=== PATIENT | male | born 2000 | race Caucasian/White ===

== ENCOUNTER 2024-08-25 16:05 | Inpatient (IN) | payer BC ==
--- NOTE | 2024-08-25 17:29 | ED ---
Skin/Abscess/FB HPI - General Chief complaint: Skin/Abscess/Foreign Body Stated complaint: r leg cut- pain Time Seen by Provider: 08/25/24 17:21 Source: patient, RN notes reviewed Mode of arrival: ambulatory - History of Present Illness Initial comments: 23-year-old male presenting for right knee infection x 2 weeks. States he believes he may have gotten a cut at work a couple weeks ago on his anterior knee and has been having increased redness and pain since then. States in the last 48 hours, he has noticed red streaks spreading up the thigh and he has soreness of the right thigh. 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 Denies fevers, nausea, vomiting. He is otherwise healthy. - Related Data Allergies Allergy/AdvReac Type Severity Reaction Status Date / Time No Known Allergies Allergy Verified 08/25/24 16:24 Review of Systems ROS Statement: Those systems with pertinent positive or pertinent negative responses have been documented in the HPI. ROS Other: All systems not noted in ROS Statement are negative. Past Medical History Past Medical History: No Reported History History of Any Multi-Drug Resistant Organisms: None Reported Past Surgical History: No Surgical Hx Reported Past Psychological History: No Psychological Hx Reported Smoking Status: Current every day smoker, Vaper Past Alcohol Use History: Daily Past Drug Use History: None Reported, Marijuana General Exam General appearance: alert, in no apparent distress Head exam: Present: atraumatic, normocephalic, normal inspection Right Hip exam: Present: normal inspection, full ROM. Absent: tenderness, swelling Upper Leg exam: Present: full ROM, tenderness (Right inguinal lymphadenopathy). Absent: normal inspection (Streaking erythema present to right upper leg) Knee exam: Present: full ROM, tenderness, erythema. Absent: normal inspection (There is a 1 x 1 cm puncture wound with surrounding erythema just inferior to the right knee. Full range of motion of the knee), swelling Lower Leg exam: Present: normal inspection, full ROM. Absent: tenderness, swelling Ankle exam: Present: normal inspection, full ROM. Absent: tenderness, swelling Foot/Toe exam: Present: normal inspection, full ROM. Absent: tenderness, swelling Neurovascular tendon exam: Present: no vascular compromise. Absent: pulse deficit, abnormal cap refill, sensory deficit Neurological exam: Present: alert, oriented X3 Psychiatric exam: Present: normal affect, normal mood Skin exam: Present: warm, dry, intact Course Vital Signs 08/25/24 16:20 Temperature 98.1 F Pulse Rate 91 Respiratory 18 Rate Blood Pressure 135/70 O2 Sat by Pulse 97 Oximetry Medical Decision Making - Medical Decision Making Was pt. sent in by a medical professional or institution ([facility], [facility]TRAS[facility] TE[facility], urgent care, hospital, or residential...) When possible be specific @ -No Did you speak to anyone other than the patient for history (EMS, parent, family, police, friend...)? What history was obtained from this source @ -No Did you review nursing and triage notes (agree or disagree)? Why? @ -I reviewed and agree with nursing and triage notes Were old charts reviewed (outside hosp., previous admission, EMS record, old EKG, old radiological studies, urgent care reports/EKG's, residential records)? Report findings @ -No old charts were reviewed Differential Diagnosis (chest pain, altered mental status, abdominal pain women, abdominal pain men, vaginal bleeding, weakness, fever, dyspnea, syncope, headache, dizziness, GI bleed, back pain, seizure, CVA, palpatations, mental health, musculoskeletal)? @ -Cellulitis, abscess, septic joint, lymphangitis, contact dermatitis EKG interpreted by me (3pts min.). @ -None X-rays interpreted by me (1pt min.). @ -None done CT interpreted by me (1pt min.). @ -None done U/S interpreted by me (1pt. min.). @ -None done What testing was considered but not performed or refused? (CT, X-rays, U/S, labs)? Why? @ -None What meds were considered but not given or refused? Why? @ -None Did you discuss the management of the patient with other professionals (professionals i.e. , [facility], ULTRASOUND TESTER, lab, RT, psych nurse, social sciences department chair, senior media buyer, teacher, chief risk officer, rn case mgr)? Give summary @ -I spoke with Dr. Chaney from [facility] who accepts admission Was smoking cessation discussed for >3mins.? @ -No Was critical care preformed (if so, how long)? @ -No Were there social determinants of health that impacted care today? How? (Homelessness, low income, unemployed, alcoholism, drug addiction, transportation, low edu. Level, literacy, decrease access to med. care, residential, rehab)? @ -No Was there de-escalation of care discussed even if they declined (Discuss DNR or withdrawal of care, Hospice)? DNR status @ -No What co-morbidities impacted this encounter? (DM, HTN, Smoking, COPD, CAD, Cancer, CVA, ARF, Chemo, Hep., AIDS, mental health diagnosis, sleep apnea, morbid obesity)? @ -None Was patient admitted / discharged? Hospital course, mention meds given and route, prescriptions, significant lab abnormalities, going to OR and other pertinent info. @ - admitted. 23-year-old male presenting for right knee infection x 2 weeks with streaking erythema up the right thigh in the last 48 hours. Positive lym phadenopathy. Patient is afebrile, nontachycardic. Neurovascularly intact. No sign of septic joint of the right knee. Blood cultures were taken. Patient was given dose of IV cefazolin in the ER while awaiting lab work. Lab work remarkable for white blood cell count 9, CRP 4.6. Patient will be admitted to medicine for lymphangitis and cellulitis for IV antibiotics. Case was discussed with my ED attending Dr. Barrientos. Undiagnosed new problem with uncertain prognosis? @ -No Drug Therapy requiring intensive monitoring for toxicity (Heparin, Nitro, Insulin, Cardizem)? @ -No Were any procedures done? @ -No Diagnosis/symptom? @ -Cellulitis, lymphangitis Acute, or Chronic, or Acute on Chronic? @ -Acute Uncomplicated (without systemic symptoms) or Complicated (systemic symptoms)? @ -Uncomplicated Side effects of treatment? @ -No Exacerbation, Progression, or Severe Exacerbation? @ -No Poses a threat to life or bodily function? How? (Chest pain, [place], [place], pneumonia, PE, COPD, DKA, ARF, appy, cholecystitis, CVA, Diverticulitis, Homicidal, Suicidal, threat to staff... and all critical care pts) @ -Potentially - Lab Data Result diagrams: 08/25/24 18:19 08/25/24 18:19 Lab Results 08/25/24 08/25/24 Range/Units 18:19 18:19 WBC 9.34 (4.50-10.00) 10*3/uL RBC 4.95 (4.40-5.60) 10*6/uL Hgb 14.6 (13.0-17.0) g/dL Hct 41.3 (39.6-50.0) % MCV 83.4 (80.0-97.0) fL MCH 29.5 (27.0-32.0) pg MCHC 35.4 (32.0-37.0) g/dL Plt Count 271 (140-440) 10*3/uL MPV 10.3 (9.5-12.2) fL Immature Gran % (Auto) 0.4 % Neutrophils % 65.5 % Lymphocytes % 22.2 % Monocytes % 9.2 % Eosinophils % 1.8 % Basophils % 0.9 % Immature Gran # 0.04 (0.00-0.04) 10*3/uL Neutrophils # 6.12 (1.80-7.70) 10*3/uL Lymphocytes # 2.07 (0.90-5.00) 10*3/uL Monocytes # 0.86 (0.20-1.00) 10*3/uL Eosinophils # 0.17 (0.04-0.35) 10*3/uL Basophils # 0.08 (0.00-0.10) 10*3/uL Sodium 137 (137-145) mmol/L Potassium 4.3 (3.5-5.1) mmol/L Chloride 102 (98-107) mmol/L Carbon Dioxide 25 (22-30) mmol/L Anion Gap 10 mmol/L BUN 16 (9-20) mg/dL Creatinine 0.81 (0.66-1.25) mg/dL Est GFR (CKD-EPI)AfAm >90 (>60 ml/min/1.73 sqM) Est GFR (CKD-EPI)NonAf >90 (>60 ml/min/1.73 sqM) Glucose 86 (74-99) mg/dL Calcium 9.7 (8.4-10.2) mg/dL Total Bilirubin 1.0 (0.2-1.3) mg/dL AST 25 (17-59) U/L ALT 25 (4-49) U/L Alkaline Phosphatase 74 (38-126) U/L C-Reactive Protein 4.6 H (<1.0) mg/dL Total Protein 6.9 (6.3-8.2) g/dL Albumin 4.5 (3.5-5.0) g/dL Disposition Clinical Impression: Lymphangitis, Cellulitis of right lower extremity Disposition: ADMITTED IP TO THIS HOSP Referrals: None,Stated [Primary Care Provider] - 1-2 days Time of Disposition: 19:58
[2024-08-25 18:27] LABS: Basophils # (A) 0.08 10*3/uL (0.00-0.10); Basophils % (A) 0.9 %; Eosinophils # (A) 0.17 10*3/uL (0.04-0.35); Eosinophils % (A) 1.8 %; HCT 41.3 % (39.6-50.0); HGB 14.6 g/dL (13.0-17.0); Lymphocytes # (A) 2.07 10*3/uL (0.90-5.00); Lymphocytes % (A) 22.2 %; MCH 29.5 pg (27.0-32.0); MCHC 35.4 g/dL (32.0-37.0); MCV 83.4 fL (80.0-97.0); Monocytes # (A) 0.86 10*3/uL (0.20-1.00); Monocytes % (A) 9.2 %; Neutrophils # (A) 6.12 10*3/uL (1.80-7.70); Neutrophils % (A) 65.5 %; Platelet Count 271 10*3/uL (140-440); RBC 4.95 10*6/uL (4.40-5.60); RDW 11.8 % (11.5-14.5); WBC 9.34 10*3/uL (4.50-10.00)
[2024-08-25 18:41] LABS: ALT 25 U/L (4-49); AST 25 U/L (17-59); African American GFR (CKD) >90 (>60 ml/min/1.73 sqM); Albumin 4.5 g/dL (3.5-5.0); Alkaline Phosphatase 74 U/L (38-126); Anion Gap 10 mmol/L; Blood Urea Nitrogen 16 mg/dL (9-20); Calcium 9.7 mg/dL (8.4-10.2); Carbon Dioxide 25 mmol/L (22-30); Chloride 102 mmol/L (98-107); Glucose 86 mg/dL (74-99); Non-African American GFR(CKD) >90 (>60 ml/min/1.73 sqM); Potassium 4.3 mmol/L (3.5-5.1); Sodium 137 mmol/L (137-145); Total Protein 6.9 g/dL (6.3-8.2)
[2024-08-25] MEDS ORDERED: NALOXONE 0.4 MG/ML 1 ML VIAL IV PRN (19:44)
[2024-08-25] MEDS ORDERED: KETOROLAC 15 MG/ML 1 ML VIAL IVP PRN (19:51)
[2024-08-25] MEDS ORDERED: ACETAMINOPHEN TAB 325 MG TAB PO PRN (19:51)
[2024-08-25] MEDS ORDERED: ONDANSETRON 4 MG/2 ML VIAL IVP PRN (19:51)
[2024-08-25] MEDS: SODIUM CHLORIDE 0.9% 1,000 ML IV SCH (20:03)
--- NOTE | 2024-08-25 21:52 | P.HPIM ---
History of Present Illness H&P Date: 08/25/24 Patient is a 23 y/o M with no PMHx here for a painful wound on his right knee. 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 Would was not painful at first and didn't think much of it. Over the course of the past the wound got larger. On Wednesday, the wound started being tender. Yesterday, he tried to drain the wound which yielded a small amount of clear fluid. Last night, he shares that the wound was very sore as well as his groin. This morning, he noticed redness tracking from the wound to his mid thigh and it was very painful which prompted him to come to the ED. He denies fevers/chills, N/V, or any pruritis. Imaging: None ordered Labs: CRP - 4.6 Vitals: 98.8, 71bpm, 16RR, 129/79, 100% O2 on RA Review of systems: Pertinent positives and negatives as discussed in HPI, a complete review of systems was performed and all other systems are negative. Physical examination: Vital signs reviewed General: non toxic, no distress, appears at stated age, normal weight Derm: no unusual rashes/lesions, warm Head: atraumatic, normocephalic, symmetric Eyes: EOMI, anicteric sclera, pupils equal round reactive to light ENT: Nose and ears atraumatic Neck: No cervical lymphadenopathy, trachea midline, supple Mouth: no lip lesion, mucus membranes moist Cardiovascular: S1S2 reg, no murmur, positive dorsalis pedis pulse bilateral, no edema Lungs: CTA bilateral, no rhonchi, no rales, no accessory muscle use Abdominal: soft, nontender to palpation, no guarding Ext: muscle strength 5 out of 5 in all 4 extremities grossly, no gross muscle atrophy, [id number] wound on R knee with erythema tracking up thigh. Tender R inguinal lymph node Neuro: CN II-XI grossly intact, no gross focal neuro deficits Psych: Alert, oriented to person, place, and time Assessment/Plan: Pt is 23 y/o male presenting with sxs of lymphangitis. # Skin and soft tissue infection at the right lower extremity below the knee with lymphangitis - Pt has erythema tracking up to the lymph nodes. Start abx and stephie wound to monitor if erythema spreads. Plan: -MRSA/MSSA test -Stephie Margins -Cefazolin The patient is admitted with an anticipated [] than 2 midnight stay for evaluation of [] CODE STATUS: [FULL CODE] Discussed with: Dr Chaney Anticipated discharge place: Home Attestation : Patient seen and examined with medical biller/coder. Agree with above assessment a nd plan. 23 y/o M with no PMHx here for a painful wound on his right knee. 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 Would was not painful at first and didn't think much of it. Over the course of the past the wound got larger. On Wednesday, the wound started being tender. Upon examination, patient has [id number] wound on R knee with erythema tracking up thigh. Tender R inguinal lymph node. No concern of abscess or septic knee. Did not meet sepsis criteria. Will continue with IV cefazolin Time spent : 55 min Past Medical History Past Medical History: No Reported History History of Any Multi-Drug Resistant Organisms: None Reported Past Surgical History: No Surgical Hx Reported Past Psychological History: No Psychological Hx Reported Smoking Status: Current every day smoker, Vaper Past Alcohol Use History: Daily Past Drug Use History: None Reported, Marijuana Medications and Allergies Allergies Allergy/AdvReac Type Severity Reaction Status Date / Time No Known Allergies Allergy Verified 08/25/24 16:24 Physical Exam Vitals: Vital Signs Temp Pulse Resp BP Pulse Ox 08/25/24 21:25 98.8 F 71 16 129/79 100 08/25/24 20:08 98.6 F 62 16 118/73 98 08/25/24 16:20 98.1 F 91 18 135/70 97 Intake and Output 08/25/24 08/25/24 08/25/24 06:59 14:59 22:59 Other: Weight 79.379 kg Results CBC & Chem 7: 08/25/24 18:19 08/25/24 18:19 Labs: Abnormal Lab Results - Last 24 Hours (Table) 08/25/24 Range/Units 18:19 C-Reactive Protein 4.6 H (<1.0) mg/dL
[2024-08-26] MEDS ORDERED: CEFAZOLIN IVPB SCH (02:00)
[2024-08-26] MEDS ORDERED: SODIUM CHLORIDE 0.9% IVPB SCH (02:00)
--- NOTE | 2024-08-26 09:17 | P.PN ---
Subjective Progress Note Date: 08/26/24 Hospital course: Patient is a 23-year-old healthy male with no reported past medical history other than nicotine use via vaping. Did to the hospital on 08/25/2024 secondary to painful wound on right knee. He reports he is unclear exactly when this happened and is unsure of what actually caused this wound, but states he believes it may have been a spider bite and admits to being down in the crawl space. Patient reports over the last week this wound seem to have increased pain followed by some surrounding redness. Did try to squeeze wound but reports only a small amount of clearish yellowish fluid came out. Patient reports since then he has developed significant redness surrounding and now going upwards his leg and into his thigh. Physical exam: Patient seen and fully evaluated at the bedside this morning. He continues to report mild to moderate pain of right knee extending upwards into thigh. Patient also reporting groin tenderness and has noted lymphadenopathy. Erythema is extending outside previous outlined area. Patient denies having any chills or diaphoresis, no documented fevers over the past 24 hours, he denies any nausea or vomiting or experiencing any numbness/tingling/weakness in his extremities. Patient reports he is unable to bear weight on his right leg secondary to increased pain. Vital signs reviewed and stable. General: Nontoxic, no distress and appears stated age. Derm: Skin warm and dry, normal coloration for ethnicity. Patient with appro ximately 1 cm round wound/scab to right knee with surrounding erythema extending upwards anterior thigh with surrounding lymphadenopathy right groin region. Erythema slightly exceeding outline placed upon arrival with skin marker. No drainage at this time. Head: Atraumatic, normocephalic and symmetric. Eyes: EOM's intact, no lid lag, and anicteric sclera Mouth: no lip lesions, mucus membranes moist Cardiovascular: regular rate and rhythm with normal S1S2, no murmur, positive posterior tibial pulses bilaterally, and cap refill < 2 seconds. Lungs: Respirations even, regular, and unlabored on room air. Lungs CTA bilaterally, no rhonchi, no rales, no wheezing, and no accessory muscle usage. Abdominal: soft, nontender to palpation, no guarding, no appreciable organomegaly Ext: ROM intact. No gross muscle atrophy, no edema, no contractures Neuro: Speech clear, face symmetrical and CN II-XII grossly intact with no noted focal neuro deficits Psych: Alert and oriented to person, place, time, and situation. Appropriate and pleasant affect. Assessment and Plan of Care: Suspected spider bite with cellulitis and lymphangitis -Slightly worsening since admission as erythema is exceeding outlined initially placed upon arrival with skin marker. -Consult placed to infectious disease. -Continue IV antibiotics with Kefzol 2 g every 8 hours. -Follow-up on blood culture results and MRSA/MSSA screening -Symptomatic care and pain management 50 mg every 6 hours as needed for mild pain and/for fever and Toradol 15 mg IVP as needed for moderate to severe pain. - Order placed for repeat CBC, ESR, and CRP. Follow-up on these results. Nicotine dependence -Recommended smoking cessation, patient offered nicotine patch but declined at this time. Data and imaging reviewed: Vital signs reviewed. Blood pressure 110/70, heart rate 60, respiratory rate 18, temp 97.7 F, and SpO2 of 100% on room air. Labs reviewed. CBC unremarkable. BMP normal findings. CRP elevated at 4.6. CODE STATUS: Full code DVT prophylaxis: Lovenox Anticipated discharge date: Pending clinical course Anticipated discharge place: Home Patient was seen independently by Nurse Pracitioner. This document was prepared using [employer] dictation software. Please allow for errors in epic cadence analyst, while rare they do occur. Celso Bryan NP rendered care for this patient independently, reviewed the fin dings and plan as documented in the note above and agree with plan. I did not physically speak with or examine the patient on this date. Objective - Vital Signs Vital signs: Vital Signs Temp 97.7 F 08/26/24 07:47 Pulse 60 08/26/24 07:47 Resp 18 08/26/24 07:47 BP 110/70 08/26/24 07:47 Pulse Ox 100 08/26/24 07:47 FiO2 Intake & Output 08/25/24 08/26/24 08/26/24 18:59 06:59 18:59 Weight 79.379 kg 79.379 kg Other: # Voids 2 # Bowel Movements 1 - Labs CBC & Chem 7: 08/25/24 18:19 08/25/24 18:19 Labs: Abnormal Lab Results - Last 24 Hours (Table) 08/25/24 Range/Units 18:19 C-Reactive Protein 4.6 H (<1.0) mg/dL
[2024-08-26 15:59] LABS: Basophils # (A) 0.06 10*3/uL (0.00-0.10); Basophils % (A) 0.8 %; Eosinophils # (A) 0.30 10*3/uL (0.04-0.35); Eosinophils % (A) 4.1 %; HCT 41.3 % (39.6-50.0); HGB 14.6 g/dL (13.0-17.0); Lymphocytes # (A) 1.94 10*3/uL (0.90-5.00); Lymphocytes % (A) 26.6 %; MCH 29.8 pg (27.0-32.0); MCHC 35.4 g/dL (32.0-37.0); MCV 84.3 fL (80.0-97.0); Monocytes # (A) 0.62 10*3/uL (0.20-1.00); Monocytes % (A) 8.5 %; Neutrophils # (A) 4.36 10*3/uL (1.80-7.70); Neutrophils % (A) 59.7 %; Platelet Count 271 10*3/uL (140-440); RBC 4.90 10*6/uL (4.40-5.60); RDW 12.0 % (11.5-14.5); WBC 7.30 10*3/uL (4.50-10.00)
--- NOTE | 2024-08-26 22:46 | P.CONS ---
History of Present Illness - Reason for Consult Consult date: 08/26/24 Cellulitis with lymphangitis Requesting physician: Celso Bryan - Chief Complaint Right knee and thigh pain swelling redness x 2 days - History of Present Illness Patient is a 23-year-old male with no significant past medical history current everyday smoker presenting to the hospital concerning for right knee pain swelling redness worsening with standing up towards the thigh symptom has been going on for the last few days patient denies any history of any trauma however he does work involving kneeling a lot and not using any kneepads patient did not recall any specific trauma or cart he noticed to have a small pimple/blister subsequently noticing increasing swelling redness patient describes the pain to be show moderate redness without any lesion with as sociated swelling redness no drainage patient did not have any fever no tachycardia hypertension patient 0.24 creatinine 0.81 electrolytes are normal liver enzymes are normal patient was started on cefazolin 2 g every 8 hours infectious he was consulted for cellulitis with lymphangitis Review of Systems Positive point and negatives has been mentioned in the HPI, complete review of systems was performed and all other systems are negative Past Medical History Past Medical History: No Reported History History of Any Multi-Drug Resistant Organisms: None Reported Past Surgical History: No Surgical Hx Reported Past Psychological History: No Psychological Hx Reported Smoking Status: Current every day smoker, Vaper Past Alcohol Use History: Daily Past Drug Use History: None Reported, Marijuana Medications and Allergies Home Medications Medication Instructions Recorded Confirmed Type No Known Home Medications 08/26/24 08/26/24 History Allergies Allergy/AdvReac Type Severity Reaction Status Date / Time No Known Allergies Allergy Verified 08/26/24 10:29 Physical Exam Vitals: Vital Signs Temp Pulse Pulse Resp BP BP Pulse Ox 08/26/24 07:47 97.7 F 60 18 110/70 100 08/25/24 22:26 98.0 F 16 114/76 100 08/25/24 22:07 62 08/25/24 21:25 98.8 F 71 16 129/79 100 08/25/24 20:08 98.6 F 62 16 118/73 98 08/25/24 16:20 98.1 F 91 18 135/70 97 Intake and Output 08/25/24 08/26/24 08/26/24 22:59 06:59 14:59 Other: # Voids 2 # Bowel Movements 1 Weight 79.379 kg GENERAL DESCRIPTION: Young male lying in bed, no distress. No tachypnea or accessory muscle of respiration use. HEENT: Shows Pallor , no scleral icterus. Oral mucous membrane is dry. No pharyngeal erythema or thrush NECK: Trachea central, no thyromegaly. LUNGS: Unlabored breathing. Clear to auscultation anteriorly. No wheeze or crackle. HEART: S1, S2, regular rate and rhythm. No loud murmur ABDOMEN: Soft, no tenderness , guarding or rigidity, no organomegaly EXTREMITIES: Right knee prepatellar area did have a small area of fluctuation and likely folliculitis with secondary swelling redness extending to the lower thigh likely from lymphangitis SKIN: No rash, no masses palpable. NEUROLOGICAL: The patient is awake, alert, oriented x3, mood and affect normal. Results CBC & Chem 7: 08/26/24 15:35 08/25/24 18:19 Labs: Abnormal Lab Results - Last 24 Hours (Table) 08/25/24 Range/Units 18:19 C-Reactive Protein 4.6 H (<1.0) mg/dL Assessment and Plan (1) Cellulitis of right lower extremity Current Visit: Yes Status: Acute Code(s): L03.115 - CELLULITIS OF RIGHT LOWER LIMB SNOMED Code(s): 30185031043622087 (2) Lymphangitis Current Visit: Yes Status: Acute Code(s): I89.1 - LYMPHANGITIS SNOMED Code(s): 7528806 Plan: 1patient was in the hospital recently admitted pain swelling redness to the right knee with linear erythema extending to the anterior right thigh and likely representing lymphangitis and cellulitis that seem to have originated from the right knee prepatellar area and likely from gram-positive skin kip could be strep or MSSA keeping in mind some improvement with the cefazolin 2if the area started to drain to obtain culture 3will continue patient will IV cefazolin for another 24-hour and if show overall improvement may consider patient therapy with oral Keflex Multiple question concern answered also advised need to use the kneepads to prevent any recurrent trauma or infection We will follow on clinical condition and cultures to further adjust medication if needed Thank you for this consultation we will follow the patient along with you Dictation was produced using [employer] software. please excuse any grammatical, word or spelling errors. Time with Patient: Greater than 30
[2024-08-27 09:02] LABS: HCT 40.5 % (39.6-50.0); HGB 13.9 g/dL (13.0-17.0); MCH 28.7 pg (27.0-32.0); MCHC 34.3 g/dL (32.0-37.0); MCV 83.7 FL (80.0-97.0); NRBC Per 100 WBC 0 X 10*3/uL (0.00-0.01); Platelet Count 285 X 10*3/uL (140-440); RBC 4.84 X 10*6/uL (4.40-5.60); RDW 11.9 % (11.5-14.5); WBC 7.09 X 10*3/uL (4.50-10.00)
[2024-08-27] MEDS: ENOXAPARIN 40 MG/0.4 ML SYRINGE SQ SCH (09:04)
[2024-08-27 09:07] LABS: Anion Gap 11.50 mmol/L (4.00-12.00); BUN/Creat Ratio 11.78 Ratio (12.00-20.00); Blood Urea Nitrogen 10.6 mg/dL (9.0-27.0); Calcium 8.9 mg/dL (8.7-10.3); Carbon Dioxide 23.5 mmol/L (21.6-31.8); Chloride 105 mmol/L (96-109); Glucose 104 mg/dL (70-110); Magnesium 2.0 mg/dL (1.5-2.4); Potassium 4.2 mmol/L (3.5-5.5); Sodium 140 mmol/L (135-145)
[2024-08-27 15:06] VITALS: BP 121/69; PULSE 42; RESP 17; TEMP 98
--- NOTE | 2024-08-27 15:42 | P.DS ---
Providers Date of admission: 08/25/24 19:53 Expected date of discharge: 08/27/24 Attending physician: Ector Chaney MD Consults: 08/26/24 08:36 Consult Physician Routine Consulting Provider: Kavita Purdy Consult Reason/Comments: CELLULITIS, LYMPHANGITIS Do you want consulting provider notified?: Yes Primary care physician: Stated None Hospital Course: Discharge Diagnosis: Suspected spider bite with cellulitis and lymphangitis. Patient has shown significant improvement on IV antibiotics with Kefzol 2 g every 8 hours. Blood culture showing no growth to date. MRSA/MSSA screening negative. Discussed with infectious disease physician, patient cleared for discharge home on oral Keflex 500 mg every 6 hours for an additional 7 days. Patient to follow-up outpatient with PCP with follow-up and further management. Nicotine dependence. Recommended smoking cessation. Hospital Course: Patient is a 23-year-old healthy male with no reported past medical history other than nicotine use via vaping. Did to the hospital on 08/25/2024 secondary to painful wound on right knee. He reports he is unclear exactly when this happened and is unsure of what actually caused this wound, but states he believes it may have been a spider bite and admits to being down in the crawl space. Patient reports over the last week this wound seem to have increased pain followed by some surrounding redness. Did try to squeeze wound but reports only a small amount of clearish yellowish fluid came out. Patient reports since then he has developed significant redness surrounding and now going upwards his leg and into his thigh. Physical exam: Patient seen and fully evaluated at the bedside this morning. He continues to report mild to moderate pain of right knee extending upwards into thigh. Patient also reporting groin tenderness and has noted lymphadenopathy. Erythema is extending outside previous outlined area. Patient denies having any chills or diaphoresis, no documented fevers over the past 24 hours, he denies any nausea or vomiting or experiencing any numbness/tingling/weakness in his extremities. Patient reports he is unable to bear weight on his right leg secon marion to increased pain. Vital signs reviewed and stable. General: Nontoxic, no distress and appears stated age. Derm: Skin warm and dry, normal coloration for ethnicity. Patient with approximately 1 cm round wound/scab to right knee with minimal surrounding erythema extending upwards anterior thigh but significantly improved since arrival to our facility Head: Atraumatic, normocephalic and symmetric. Eyes: EOM's intact, no lid lag, and anicteric sclera Mouth: no lip lesions, mucus membranes moist Cardiovascular: regular rate and rhythm with normal S1S2, no murmur, positive posterior tibial pulses bilaterally, and cap refill < 2 seconds. Lungs: Respirations even, regular, and unlabored on room air. Lungs CTA bilaterally, no rhonchi, no rales, no wheezing, and no accessory muscle usage. Abdominal: soft, nontender to palpation, no guarding, no appreciable organomegaly Ext: ROM intact. No gross muscle atrophy, no edema, no contractures Neuro: Speech clear, face symmetrical and CN II-XII grossly intact with no noted focal neuro deficits Psych: Alert and oriented to person, place, time, and situation. Appropriate and pleasant affect. A total of 31 minutes of time were spent preparing this complex discharge summary. Pt was discharged on 08/27/24 at 2:08 PM. Patient was seen independently by Nurse Practitioner. This document was prepared using [employer] dictation software. Please allow for errors in salt miner while rare they do occur. Celso Bryan NP rendered care for this patient independently, reviewed the findings and plan as documented in the note above. I did not physically speak with or examine the patient on this date. Patient Condition at Discharge: Stable Plan - Discharge Summary Discharge Rx Participant: No New Discharge Prescriptions: New Cephalexin [Keflex] 500 mg PO Q6HR 7 Days #28 cap Discharge Medication List Cephalexin [Keflex] 500 mg PO Q6HR 7 Days #28 cap 08/27/24 [Rx] Follow up Appointment(s)/Referral(s): Ton Nova MD [STAFF PHYSICIAN] - 1 Week (Please call first thing tomorrow morning and schedule first available appointment for follow-up evaluation and continued management of care.) Patient Instructions/Handouts: Cellulitis (GEN) Discharge Disposition: HOME SELF-CARE
--- NOTE | 2024-08-27 16:27 | P.PN ---
Subjective Progress Note Date: 08/27/24 Principal diagnosis: Reason for follow-up is right lower extremity cellulitis concerning for prepatellar bursitis Patient is a 23-year-old male with no significant past medical history current everyday smoker presenting to the hospital concerning for right knee pain swelling redness has been diagnosed with a right lower extremity cellulitis possible right knee prepatellar bursitis prompted this consultation. On today's evaluation that is 08/27/2024, Patient is afebrile patient is currently on room air and denies having any shortness of breath, the patient denies any chest pain or cough, the patient denies any nausea vomiting did not have any abdominal pain and no diarrhea patient right knee and lower extremity swelling redness and pain has much improved feeling better wants to go home. Patient white count 7.09 creatinine 0.9 blood Christopher negative Objective - Vital Signs Vital signs: Vital Signs Temp 97.9 F 08/27/24 07:11 Pulse 50 L 08/27/24 07:11 Resp 17 08/27/24 07:11 BP 102/62 08/27/24 07:11 Pulse Ox 99 08/27/24 07:11 FiO2 Intake & Output 08/26/24 08/27/24 08/27/24 18:59 06:59 18:59 Other: # Voids 3 - Exam GENERAL DESCRIPTION: Young male lying in bed in no distress RESPIRATORY SYSTEM: Unlabored breathing , decreased breath sounds at bases HEART: S1 S2 regular rate and rhythm , ABDOMEN: Soft , no tenderness EXTREMITIES: Right lower extremity swelling and redness has improved no drainage - Labs CBC & Chem 7: 08/27/24 05:59 08/27/24 05:59 Labs: Abnormal Lab Results - Last 24 Hours (Table) 08/26/24 08/27/24 Range/Units 15:35 05:59 BUN/Creatinine Ratio 11.78 L (12.00-20.00) Ratio C-Reactive Protein 5.2 H (<1.0) mg/dL Microbiology - Last 24 Hours (Table) 08/25/24 20:26 Nasal Screen MRSA/MSSA - Final Nasal Swab 08/25/24 18:19 Blood Culture - Preliminary Blood Assessment and Plan (1) Cellulitis of right lower extremity Status: Acute Code(s): L03.115 - CELLULITIS OF RIGHT LOWER LIMB SNOMED Code(s): 09131189152415631 (2) Lymphangitis Status: Acute Code(s): I89.1 - LYMPHANGITIS SNOMED Code(s): 2329037 (3) Prepatellar bursitis of right knee Status: Acute Code(s): M70.41 - PREPATELLAR BURSITIS, RIGHT KNEE SNOMED Code(s): 362273409257598 Plan: 1patient was in the hospital recently admitted pain swelling redness to the right knee with linear erythema extending to the anterior right thigh and likely representing lymphangitis and cellulitis that seem to have originated from the right knee prepatellar area and likely from gram-positive skin kip could be strep or MSSA keeping in mind some improvement with the cefazolin 2patient seem to have shown clinical improvement remains to be afebrile white count is normal feeling better wants to go home we will recommend a 7-day course of oral Keflex on discharge discussed with the [facility] TECHNICIAN for admitting working on discharge Dictation was produced using [employer] dictation software. please excuse any grammatical, word or spelling errors. Time with Patient: Less than 30
== END 2024-08-27 15:26 | disposition home or self-care (01) | DRG 918 ==
LOC: EC 16:05 → 4SSUR 19:53 → OBSVTOIN 19:53 → 4SSUR 20:52
PROVIDERS: ADMIT Student in an Organized Health Care Education/Training Program; ATTEND Student in an Organized Health Care Education/Training Program
DX: T63.301A Toxic effect of unspecified spider venom, accidental (unintentional), initial encounter (principal); L03.115 Cellulitis of right lower limb; F17.290 Nicotine dependence, other tobacco product, uncomplicated; M70.41 Prepatellar bursitis, right knee
CPT/HCPCS: 36415; 80048; 80053; 83735; 85025; 85027; 85652; 86140; 87040; 87070; 96361; 96365; 99285